=== PATIENT | female | born 1975 | race Caucasian/White ===

== ENCOUNTER 2016-09-01 10:38 | Outpatient (CLI) | payer OTHER | END 2016-09-01 10:39 | disposition home or self-care (01) | DX: Z11.3 Encounter for screening for infections with a predominantly sexual mode of transmission (principal) ==

== ENCOUNTER 2016-10-26 10:09 | Outpatient (CLI) | payer OTHER ==
--- NOTE | 2016-10-27 16:11 | Mammography Report ---
DIGITAL SCREENING MAMMOGRAM: 10/26/2016 CLINICAL INDICATION: A 41-year-old, for screening, family history of breast cancer. COMPARISON: 01/2010. TECHNIQUE: Routine CC and MLO projections were obtained of the breasts. FINDINGS: The breasts again demonstrate heterogeneously dense fibroglandular parenchyma bilaterally. In the right lower inner central breast, there is a possible developing density. Further evaluation with spot compression views and possible ultrasound is recommended. No mammographically suspicious fi ndings are appreciated in the left breast. Punctate, typically benign calcifications are present. IMPRESSION: INCOMPLETE EXAMINATION. RECOMMENDATION: ADDITIONAL EVALUATION OF THE RIGHT BREAST ABOVE. BIRADS CATEGORY 0-INCOMPLETE. STANDARD QUALIFYING STATEMENTS 1. This examination was reviewed with the aid of Computer-Aided Detection (CAD). 2. A negative or benign imaging report should not delay biopsy if clinically suspicious findings are present. Consider surgical consultation if warranted. More than 5% of cancers are not identified by i maging. 3. Dense breasts may obscure an underlying neoplasm. :9 JOB #: [id number] EXT JOB #:[id number]
== END 2016-10-26 10:10 | disposition home or self-care (01) ==
LOC: DI.N 10:09
PROVIDERS: ATTEND Nurse Practitioner Obstetrics & Gynecology
DX: Z12.39 Encounter for other screening for malignant neoplasm of breast (principal); R92.8 Other abnormal and inconclusive findings on diagnostic imaging of breast
CPT/HCPCS: 77067

== ENCOUNTER 2016-11-16 12:33 | Outpatient (CLI) | payer OTHER ==
--- NOTE | 2016-11-16 17:15 | Mammography Report ---
ADDITIONAL VIEWS OF THE RIGHT BREAST: 11/16/2016 CLINICAL HISTORY: A 41-year-old female who had an asymmetrical density noted in the inner inferior q uadrant of the right breast on recent screening mammogram dated 10/26/2016. Patient returns today fo r additional views of the right breast. COMPARISON: 02/13/2010 and 10/26/2016. TECHNIQUE: Right mediolateral view and coned-down compression CC and MLO views were obtained of the right breast with Hologic full field digital mammography. FINDINGS: Breast parenchyma is extremely dense. Coned-down compression views of the right breast demonstrate the area of concern in the inner inferio r quadrant of the right breast represented a benign summation shadow. It totally disappeared on the coned-down compression images. IMPRESSION: RIGHT BREAST APPEARS RADIOGRAPHICALLY BENIGN. BIRADS CATEGORY: 1, NEGATIVE. RECOMMENDATION: ANNUAL BILATERAL SCREENING MAMMOGRAPHY. COMMENT: Patient was informed of the benign results. She was also given a written report of today's findings. JOB #: [id number] EXT JOB #:[id number]
== END 2016-11-16 12:34 | disposition home or self-care (01) ==
LOC: DI 12:33
PROVIDERS: ATTEND Nurse Practitioner Obstetrics & Gynecology
DX: R92.8 Other abnormal and inconclusive findings on diagnostic imaging of breast (principal)

== ENCOUNTER 2017-01-14 08:00 | Outpatient (CLI) | payer OTHER | END 2017-01-14 08:01 | disposition home or self-care (01) | LOC: LAB.R 08:00 | PROVIDERS: ATTEND Nurse Practitioner Obstetrics & Gynecology | DX: N76.0 Acute vaginitis (principal) | CPT/HCPCS: 87480; 87510; 87660 ==

== ENCOUNTER 2018-11-15 16:43 | Outpatient (CLI) | payer BC, OTHER ==
[2018-11-15 21:39] LABS: CANDIDA GROUP DNA NEGATIVE (NEGATIVE); CANDIDA KRUSEI DNA NEGATIVE (NEGATIVE); TRICHOMONAS VAGINALIS DNA NEGATIVE (NEGATIVE)
== END 2018-11-15 23:59 | disposition home or self-care (01) ==
LOC: LAB.R 16:43
PROVIDERS: ATTEND Nurse Practitioner Obstetrics & Gynecology
DX: N76.0 Acute vaginitis (principal); N39.0 Urinary tract infection, site not specified
CPT/HCPCS: 87086; 87181; 87661; 87801

== ENCOUNTER 2019-08-28 13:17 | Outpatient (CLI) | payer BC | END 2019-08-28 13:18 | disposition home or self-care (01) | LOC: DI 13:17 | PROVIDERS: ATTEND Family Medicine | DX: R00.2 Palpitations (principal) | CPT/HCPCS: 93306 ==

== ENCOUNTER 2020-05-29 11:05 | Outpatient (CLI) | payer BC ==
[2020-05-29 22:43] LABS: CHLAMYDIA TRACHOMATIS DNA NEGATIVE (NEGATIVE); NEISSERIA GONORRHOEAE DNA NEGATIVE (NEGATIVE); TRICHOMONAS VAGINALIS DNA NEGATIVE (NEGATIVE)
== END 2020-05-29 23:59 | disposition home or self-care (01) ==
LOC: LAB.N 11:05
PROVIDERS: ATTEND Obstetrics & Gynecology
DX: Z11.3 Encounter for screening for infections with a predominantly sexual mode of transmission (principal)
CPT/HCPCS: 87491; 87591; 87661

== ENCOUNTER 2020-06-03 13:40 | Outpatient (CLI) | payer BC ==
--- NOTE | 2020-06-04 12:28 | Mammography Report ---
BILATERAL DIGITAL SCREENING MAMMOGRAM 3D/2D: 06/03/2020 CLINICAL: Family history of breast cancer. Routine screening. Comparison is made to exams dated: 11/16/2016 mammogram, 10/26/2016 mammogram, 02/13/2010 mammogram, an d 02/13/2010 ultrasound - [facility]. The tissue of both breasts is heterogeneously dense. This may lower the sensitivity of mammography. No significant masses, calcifications, or other findings are seen in either breast. There has been no significant interval change. IMPRESSION: NEGATIVE There is no mammographic evidence of malignancy. A 1 year screening mammogram is recommended. This exam was interpreted at Station ID: [id number]. NOTE: For mammograms, a report in lay terms will be sent to the patient. Approximately 15% of breast malignancies will not be visualized mammographically. In the management of a palpable breast mass, a negative mammogram must not discourage biopsy of a clinically suspicious lesion. Electronically Signed By: Herber craven/zulma:06/03/2020 14:19:05 ACR BI-RADS Category 1: Negative 3341F PARENCHYMAL PATTERN: (D) - The breast(s) demonstrate(s) heterogeneously dense fibroglandular marian morillo. BI-RADS CATEGORY: (1) - 1 RECOMMENDATION: (ANNUAL) - Recommend routine annual screening mammography. 20210604 1 year screening LATERALITY: (B)
== END 2020-06-03 13:41 | disposition home or self-care (01) ==
LOC: DI.N 13:40
DX: Z12.31 Encounter for screening mammogram for malignant neoplasm of breast (principal); Z80.3 Family history of malignant neoplasm of breast
CPT/HCPCS: 77067

== ENCOUNTER 2021-06-17 09:24 | Outpatient (CLI) | payer BC ==
--- NOTE | 2021-06-18 13:45 | Mammography Report ---
BILATERAL DIGITAL SCREENING MAMMOGRAM 3D/2D: 06/17/2021 CLINICAL: Family history of breast cancer. Routine screening. Comparison is made to exams dated: 06/03/2020 mammogram, 11/16/2016 mammogram, 10/26/2016 mammogram, 01/28 mammogram, and 02/13/2010 ultrasound - [facility]. The tissue of both breast s is heterogeneously dense. This may lower the sensitivity of mammography. No significant masses, calcifications, or other findings are seen in either breast. There has been no significant interval change. IMPRESSION: NEGATIVE There is no mammographic evidence of malignancy. A 1 year screening mammogram is recommended. This exam was interpreted at Station ID: [id number]. NOTE: For mammograms, a report in lay terms will be sent to the patient. Approximately 15% of breast malignancies will not be visualized mammographically. In the management of a palpable breast mass, a negative mammogram must not discourage biopsy of a clinically suspicious lesion. Electronically Signed By: Chavo Mohan M.D., jr/zulma:06/17/2021 10:06:43 ACR BI-RADS Category 1: Negative 3341F PARENCHYMAL PATTERN: (D) - The breast(s) demonstrate(s) heterogeneously dense fibroglandular parenchy ma. BI-RADS CATEGORY: (1) - 1 RECOMMENDATION: (ANNUAL) - Recommend routine annual screening mammography. 20220618 1 year screening LATERALITY: (B)
== END 2021-06-17 09:25 | disposition home or self-care (01) ==
LOC: DI.N 09:24
DX: Z12.31 Encounter for screening mammogram for malignant neoplasm of breast (principal); Z80.3 Family history of malignant neoplasm of breast

== ENCOUNTER 2021-08-03 07:43 | Outpatient (CLI) | payer BC ==
--- NOTE | 2021-08-04 00:32 | Ultrasound Report ---
PROCEDURE: Pelvic w/Transvaginal INDICATIONS: COLE SYNDROME TECHNIQUE: Real-time scanning was performed of the pelvic organs, with image documentation. Additional endovagi nal scanning was necessary due to incomplete visualization of the adnexal and endometrial structures by transabdominal scanning. COMPARISON: None. FINDINGS: Uterus: Uterus is anteverted and measures 9.1 x 3.4 x 5.4 cm. Endometrium measures up to 0.3 cm in t hickness. No uterine mass lesions identified. Multiple nabothian cysts are noted. Ovaries: The right ovary measures 2.1 x 2.0 x 1.7 cm with a volume of 3.7 mL. The left ovary was not well seen. No adnexal mass identified. IMPRESSION: 1. Left ovary not visualized. 2. No adnexal masses identified. Reviewed by: Du Newsome MD on 08/04/2021 12:31 AM PST Approved by: Du Newsome MD on 08/04/2021 12:31 AM PST Station ID: [id number]
== END 2021-08-03 07:44 | disposition home or self-care (01) ==
LOC: DI 07:43
PROVIDERS: ATTEND Nurse Practitioner Obstetrics & Gynecology
DX: Z15.09 Genetic susceptibility to other malignant neoplasm (principal); Z80.0 Family history of malignant neoplasm of digestive organs

== ENCOUNTER 2021-12-01 08:58 | Day surgery (SDC) | payer BC ==
[2021-12-01] MEDS ORDERED: LACTATED RINGERS 1,000 ML IV ONE ×2 (09:07→11:17)
[2021-12-01] MEDS ORDERED: PROPOFOL 500 MG/50 ML 500 MG/50 ML VIAL ONE (09:29)
[2021-12-01] MEDS ORDERED: LIDOCAINE-MPF 2% 5 ML VIAL ONE (09:29)
--- NOTE | 2021-12-01 09:42 | ANESTHESIA ---
Pre-Anesthesia VS, & Labs Height: 5 ft 3 in Weight (kg): 58 kg Body Mass Index: 22.6 BMI Classification: Healthy weight - NPO >8 hours - Is Patient ?: No <Kimberly Roy - Last Filed: 12/01/21 09:40> - Diagnosis Phelps Syndrome (Kimberly Roy) - Procedure EGD and Colonoscopy (Kimberly Roy) Home Medications and Allergies <Kimberly Roy - Last Filed: 12/01/21 09:40> <Jay Nicholson P - Last Filed: 12/01/21 09:55> Home Medications: Ambulatory Orders Alprazolam [Alprazolam Odt] 1 mg PO PRN PRN 11/27/21 Gabapentin [Neurontin] 200 mg PO QPM 11/27/21 Losartan Potassium 1 tab DAILY 11/27/21 Ondansetron Odt [Zofran Odt] 1 tab Q4H PRN 11/27/21 Propranolol [Inderal] 1 tab DAILY 11/27/21 Alprazolam [Alprazolam Odt] 1 mg PO PRN PRN 11/27/21 Gabapentin [Neurontin] 200 mg PO QPM 11/27/21 Losartan Potassium 1 tab DAILY 11/27/21 Ondansetron Odt [Zofran Odt] 1 tab Q4H PRN 11/27/21 Propranolol [Inderal] 1 tab DAILY 11/27/21 Allergies/Adverse Reactions: Allergies Allergy/AdvReac Type Severity Reaction Status Date / Time No Known Drug Allergies Allergy Verified 12/01/21 09:26 Anes History & Medical History - Anesthetic History Anesthesia Complications: reports: No previous complications Family history of Anesthesia Complications: Denies Family history of Malignant Hyperthermia: Denies - Medical History Cardiovascular: reports: Hypertension Pulmonary: reports: None Gastrointestinal: reports: None Urinary: reports: None Musculoskeletal: reports: None Endocrine/Autoimmune: reports: None Skin: reports: None Smoking Status: Never smoker History of Cancer?: No - Surgical History Gynecologic: reports: section <Kimberly Roy - Last Filed: 12/01/21 09:40> - Medical History Cardiovascular: reports: Murmur <Jay Nicholson P - Last Filed: 12/01/21 09:55> Exam General: Alert, Oriented x3 Dental: WNL Mouth Opening: Greater than 4 Fingerbreadths Neck Mobility: Normal Mallampati classification: I Thyromental Distance: 4-6 cm Respiratory: Lungs clear Cardiovascular: Regular rate Mental/Cognitive Status: Alert/Oriented X3, Normal for patient Cognitive Status: Within normal limits <Kimberly Roy - Last Filed: 12/01/21 09:40> Dental: Other (crowns at 8/9) <Jay Nicholson - Last Filed: 12/01/21 09:55> Plan Anesthesia Type: Total IV Consent for Procedure(s) Verified and Reviewed: Yes Code Status: Attempt Resuscitation ASA classification: 2-Mild systemic disease Is this case an emergency?: No <Kimberly Roy - Last Filed: 12/01/21 09:40>
[2021-12-01 09:45] LABS: HCG UR QUAL NEGATIVE
[2021-12-01] MEDS ORDERED: MIDAZOLAM 2 MG/2 ML VIAL ONE (10:31)
--- NOTE | 2021-12-01 11:47 | ANESTHESIA POST OP EVALUATION ---
Anesthesia Post Eval - Post Anesthesia Eval Vitals: Last Vital Signs Temp 37.2 C 12/01/21 11:26 Pulse 68 12/01/21 11:26 Resp 14 12/01/21 11:26 BP 76/42 L 12/01/21 11:26 Pulse Ox 97 12/01/21 11:26 CV Function Including HR & BP: Stable Pain Control: Satisfactory Nausea & Vomiting: Negative Mental Status: Baseline Respiratory Status: Airway Patent Hydration Status: Satisfactory Anesthesia Complications: None
[2021-12-01 12:00] VITALS: BP 103/66
== END 2021-12-01 08:59 | disposition home or self-care (01) ==
LOC: SDS 08:58
PROVIDERS: ATTEND Surgery
PROC: 0DB58ZZ Excision of Esophagus, Via Natural or Artificial Opening Endoscopic (ICD-10-PCS; 2021-12-01)
PROC: 0DB48ZZ Excision of Esophagogastric Junction, Via Natural or Artificial Opening Endoscopic (ICD-10-PCS; 2021-12-01)
PROC: 0DBP8ZX Excision of Rectum, Via Natural or Artificial Opening Endoscopic, Diagnostic (ICD-10-PCS; principal; 2021-12-01 10:00)
PROC: 0DB98ZZ Excision of Duodenum, Via Natural or Artificial Opening Endoscopic (ICD-10-PCS; 2021-12-01 10:00)
DX: R10.9 Unspecified abdominal pain (principal); R63.4 Abnormal weight loss; D12.8 Benign neoplasm of rectum; K25.9 Gastric ulcer, unspecified as acute or chronic, without hemorrhage or perforation; K29.50 Unspecified chronic gastritis without bleeding; Z32.02 Encounter for pregnancy test, result negative; Z68.22 Body mass index [BMI] 22.0-22.9, adult; Z80.0 Family history of malignant neoplasm of digestive organs
CPT/HCPCS: 43239; 45385; 81025; J7120

== ENCOUNTER 2022-04-23 06:48 | Emergency (ER) | payer BC ==
--- NOTE | 2022-04-23 07:35 | ED Physician Documentation ---
History of Present Illness - Stated complaint Stated Complaint: SPIDER BITE - Chief complaint Chief Complaint: Wound - History obtained from History obtained from: Patient - History of Present Illness Timing: How many days ago (3) Pain level max: 4 Pain level now: 3 - Additonal information Additional information: Left lower abdominal wall abscess. Increasing in size over the past 2 days. States it drained this morning spontaneously. Here for evaluation. No fevers. Patient is not currently or breast-feeding. Not on any medications at home. 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 - Present Medications Home Medications: Ambulatory Orders Medication Instructions Recorded Confirmed Sulfamethox/Trimeth 800/160 1 each PO BID #14 tablet 04/23/22 [Bactrim Ds 800/160] cephALEXin [Keflex] 500 mg PO Q6H #28 cap 04/23/22 - Allergies Allergies/Adverse Reactions: Allergies Allergy/AdvReac Type Severity Reaction Status Date / Time No Known Drug Allergies Allergy Verified 04/23/22 06:59 - Social History Does the pt smoke?: No Smoking Status: Never smoker Does the pt drink ETOH?: No Does the pt have substance abuse?: No - Immunizations Immunizations are current?: No Immunizations: TDAP >10years/unknown - POLST Patient has POLST: No PD ED PE NORMAL - Vitals Vital signs reviewed: Yes - General General: Alert and oriented X 3, No acute distress, Well developed/nourished - Respiratory Respiratory: No respiratory distress - Abdomen Abdomen: Other (Left lower quadrant - 3 x 3 cm area of erythema with a small indurated area in the center that appears to have spontaneously ruptured and drained purulent material. ) - Derm Derm: Warm and dry - Neuro Neuro: Alert and oriented X 3 - Psych Psych: Normal mood, Normal affect Results - Vitals Vitals: Vital Signs - 24 hr 04/23/22 06:50 Temperature 36.7 C Heart Rate 98 Respiratory 16 Rate Blood Pressure 163/84 H O2 Saturation 99 Oxygen O2 Source Room air PD MEDICAL DECISION MAKING - ED course Complexity details: considered differential, d/w patient ED course: Patient with a small abscess on the left lower quadrant. Spontaneously ruptured this morning. No indication for drainage. Will place on antibiotics. We will have her follow-up with her doctor for further care. Patient counseled regarding signs and symptoms for which I believe and urgent re-evaluation would be necessary. Patient with good understanding of and agreement to plan and is comfortable going home at this time This document was made in part using voice recognition software. While efforts are made to proofread this document, sound alike and grammatical errors may occur. Departure - Departure Disposition: Home, Self Care Clinical Impression: Abscess Condition: Good Instructions: ED Staph Infec Abx Tx Only Follow-Up: Jonathan Hanson DO [Primary Care Provider] - As Needed Prescriptions: Sulfamethox/Trimeth 800/160 [Bactrim Ds 800/160] 1 each PO BID #14 tablet cephALEXin [Keflex] 500 mg PO Q6H #28 cap Comments: Your prescriptions were sent to [facility] in [place]. Please follow-up with your doctor for further care. Take all antibiotics until gone. Return if you worsen.
[2022-04-23] MEDS: SULFAMETH/TRIMETH DS 800/160 MG TABLET PO STA (08:11)
[2022-04-23] MEDS: cephALEXin 250 MG CAPSULE PO STA (08:11)
[2022-04-23 08:12] VITALS: BP 116/71
== END 2022-04-23 08:11 | disposition home or self-care (01) ==
LOC: ED 06:48
DX: L02.211 Cutaneous abscess of abdominal wall (principal)
CPT/HCPCS: 87070; 87181; 87205; 99283; 99284; A9270

== ENCOUNTER 2022-06-24 08:00 | Outpatient (CLI) | payer BC ==
--- NOTE | 2022-06-24 21:05 | XRAY Report ---
PROCEDURE: Finger(s) RT INDICATIONS: RIGHT MIDDLE FINGER PAIN TECHNIQUE: AP hand, 2 views of the third finger(s) acquired. COMPARISON: None FINDINGS: Bones: No fractures or dislocations. No suspicious bony lesions. There is persistent flexion of the distal interphalangeal joint of the third finger. Soft tissues: No suspicious soft tissue calcifications. IMPRESSION: No acute bony fracture is seen. There is persistent flexion of the distal interphalangeal joint of the third finger, which is consist ent with soft tissue injury. Reviewed by: Tarun Mills MD on 06/24/2022 8:04 PM [facility] Approved by: Tarun Mills MD on 06/24/2022 8:04 PM [facility] Station ID: [id number]
== END 2022-06-24 08:01 | disposition home or self-care (01) ==
LOC: DI.WOS 08:00
PROVIDERS: ATTEND Orthopaedic Surgery
DX: M79.644 Pain in right finger(s) (principal)

== ENCOUNTER 2023-10-18 08:59 | Outpatient (CLI) | payer OTHER ==
--- NOTE | 2023-10-19 09:14 | Mammography Report ---
BILATERAL DIGITAL SCREENING MAMMOGRAM 3D/2D: 10/18/2023 CLINICAL: Routine screening. Family history of breast cancer. Comparison is made to exams dated: 06/17/2021 mammogram, 06/03/2020 mammogram, and 10/26/2016 mammogram - [facility]. Both breasts are heterogeneously dense, which may obscure small masses (category c / 51-75% glandular tissue). There is a new oval focal asymmetry with an obscured margin in the right breast at 12 o'clock middle depth. No other significant masses, calcifications, or other findings are seen in either breast. IMPRESSION: INCOMPLETE: NEEDS ADDITIONAL IMAGING EVALUATION The new oval focal asymmetry in the right breast is indeterminate. Additional views with possible ul trasound are recommended. Based on the Tyrer Cuzick model (a risk assessment model) the patient's lifetime risk is 19.5% and he r 10 year risk is 4.5%. According to the ACR, ACS, and NCCN guidelines, an annual breast MRI exam jd ng with mammogram is recommended if the patient's lifetime risk is 20% or greater. This exam was interpreted at Station ID: [id number]. NOTE: For mammograms, a report in lay terms will be sent to the patient. Approximately 15% of breast malignancies will not be visualized mammographically. In the management of a palpable breast mass, a negative mammogram must not discourage biopsy of a clinically suspicious lesion. Electronically Signed By: Herber craven/[email or web address]:10/18/2023 14:48:21 ACR BI-RADS Category 0: Incomplete 3340F PARENCHYMAL PATTERN: (D) - The breast(s) demonstrate(s) heterogeneously dense fibroglandular parsandray ma. BI-RADS CATEGORY: (0) - 0 Mammo and [place] [id number] Immediate follow-up LATERALITY: (R)
== END 2023-10-18 09:00 | disposition home or self-care (01) ==
LOC: DI.N 08:59
DX: Z12.31 Encounter for screening mammogram for malignant neoplasm of breast (principal); Z80.3 Family history of malignant neoplasm of breast; R92.333 Mammographic heterogeneous density, bilateral breasts; R92.8 Other abnormal and inconclusive findings on diagnostic imaging of breast